=== PATIENT | male | born 1985 | race Caucasian/White ===

== ENCOUNTER 2018-04-22 01:11 | Emergency (ER) | payer OTHER ==
[2018-04-22 01:20] VITALS: BP 123/86; PULSE 87; TEMP 98.2; BMI 21.2
[2018-04-22] MEDS ORDERED: SILVER SULFADIAZINE 1% TOP CREAM 50 GM JAR TP ONE ×2 (01:27→01:45)
[2018-04-22] MEDS ORDERED: IBUPROFEN 600 MG TABLET (FP) PO ONE ×2 (01:43→01:44)
--- NOTE | 2018-04-22 01:43 | PDOC ---
History of Present Illness - General Chief Complaint: Burn Stated Complaint: LT HAND BURN Time Seen by Provider: 04/22/18 01:40 History Source: Patient Exam Limitations: No Limitations - History of Present Illness Initial Comments: 04/22/18 01:40 This is a 33-year-old male who comes in complaining of a burn to his right hand. Patient said he injured it at work. Allergies: None Past Medical History: none Social history: Lives with family. No smoking. No alcohol. No illicit drugs. Surgical history: None General: No fevers or chills, no weakness, no weight loss HEENT: No change in vision. No sore throat,. No ear pain CardioVascular: no chest discomfort. No shortness of breath Respiratory:No cough, or wheezing. Gastrointestinal: no nausea, vomiting, diarrhea or constipation, No rectal bleeding Genitourinary: No dysuria, hematuria, or frequency Musculoskeletal: No joint or muscle pain or swelling,+ burn to right hand Neurologic: No headache, vertigo, dizziness or loss of consciousness Psychiatric: nor depression Skin: No rashes or easy bruising Endocrine: no increased thirst or abnormal weight change Allergic: no skin or latex allergy All other systems reviewed and normal GENERAL: The patient is awake, alert, and fully oriented, in no acute distress. HEAD: Normal with no signs of trauma. EYES: Pupils equal, round and reactive to light, extraocular movements intact, sclera anicteric, conjunctiva clear. EXTREMITIES: Right hand there are small blisters on the palmar surface of the third fourth and fifth fingers each blisters proximal 1 x 1 cm does not cross the joint. NEUROLOGICAL: Normal speech, normal gait. PSYCH: Normal mood, normal affect. SKIN: Warm, Dry, normal turgor, no rashes or lesions noted. Past History - Past Medical History Allergies/Adverse Reactions: Allergies Allergy/AdvReac Type Severity Reaction Status Date / Time No Known Allergies Allergy Unverified 04/22/18 01:14 Home Medications: Ambulatory Orders NK [No Known Home Medication] 04/22/18 COPD: No - Suicide/Smoking/Psychosocial Hx Smoking History: Current every day smoker Number of Cigarettes Smoked Daily: 0 Information on smoking cessation initiated: Yes Drug/Substance Use Hx: Yes (MARIJUANA DAILY) *Physical Exam - Vital Signs Last Vital Signs Temp Pulse Resp BP Pulse Ox 98.2 F 87 16 123/86 98 04/22/18 01:16 04/22/18 01:16 04/22/18 01:16 04/22/18 01:16 04/22/18 01:16 Moderate Sedation - Procedure Monitoring Vital Signs: Procedure Monitoring Vital Signs Temperature 98.2 F 04/22/18 01:16 Pulse Rate 87 04/22/18 01:16 Respiratory Rate 16 04/22/18 01:16 Blood Pressure 123/86 04/22/18 01:16 O2 Sat by Pulse Oximetry (%) 98 04/22/18 01:16 *DC/Admit/Observation/Transfer Diagnosis at time of Disposition: Burn of fingers - Discharge Dispostion Disposition: HOME Condition at time of disposition: Stable Decision to Admit order: No - Referrals Referrals: Judy Lugo MD [Primary Care Provider] - - Patient Instructions Printed Discharge Instructions: How to Take Care of a Burn Additional Instructions: Wipe the Silvadene off once a day and cover with Silvadene and wrap with a dressing or put a Band-Aid over it. Return to the emergency department immediately with ANY new, persistent or worsening symptoms. Continue any medications as previously prescribed by your physician. You should follow up with your primary doctor as soon as possible regarding today's emergency department visit. . Please make sure your doctor reviews the results of your emergency evaluation. Thank you for coming to the Emergency Department today for your care. It was a pleasure to see you today. Please note that your evaluation is INCOMPLETE until you follow-up with your doctor. - Post Discharge Activity
== END 2018-04-22 01:56 | disposition home or self-care (01) ==
LOC: FER 01:11
PROC: 2W2EX4Z Dressing of Right Hand using Bandage (ICD-10-PCS; principal; 2018-04-22)
DX: T23.001A Burn of unspecified degree of right hand, unspecified site, initial encounter (principal); X08.8XXA Exposure to other specified smoke, fire and flames, initial encounter; Y93.89 Activity, other specified; Y92.89 Other specified places as the place of occurrence of the external cause; Y99.0 Civilian activity done for income or pay; F17.210 Nicotine dependence, cigarettes, uncomplicated
CPT/HCPCS: 99281-25